=== PATIENT | male | born 1995 | race Two or more races ===

== ENCOUNTER 2018-06-29 17:08 | Emergency (ER) | payer OTHER ==
[~2018-06-29] VITALS: Ht 170.2 cm; Wt 75.3 kg
[2018-06-29 17:36] VITALS: BP 121/78
[2018-06-29] MEDS ORDERED: TETANUS-DIPTH-ACEL PERTUSSIS 0.5ML SYRG IM ONE (19:30)
[2018-06-29] MEDS ORDERED: cefTRIAXone SOD 1,000 MG VL IM ONE (19:45)
[2018-06-29] MEDS ORDERED: LIDOCAINE 1% (LOCAL ANESTH.) PF 5ml SDV ONE (20:54)
[2018-06-29] MEDS ORDERED: LIDOCAINE 1% HCL (LOCAL ANESTH.) INJ 20ML MDV ID ONE (22:00)
== END 2018-06-29 22:25 | disposition home or self-care (01) ==
LOC: ER 17:20
DX: S61.421A Laceration with foreign body of right hand, initial encounter (principal); X58.XXXA Exposure to other specified factors, initial encounter; Y93.89 Activity, other specified; Y92.89 Other specified places as the place of occurrence of the external cause; Y99.8 Other external cause status
CPT/HCPCS: 12041; 73130; 90471; 90715; 96372; 99284; J0696